=== PATIENT | male | born 1990 | race Caucasian/White ===

== ENCOUNTER 2022-03-12 07:49 | Inpatient (IN) | payer BC, OTHER ==
[~2022-03-12] VITALS: Ht 182.9 cm; Wt 77.0 kg
[2022-03-12] VITALS (8 sets, daily range): BP systolic 105–119; BP diastolic 60–76
[2022-03-12] MEDS ORDERED: SODIUM CHLORIDE 0.9% 1,000 ML IV ONE (08:45)
[2022-03-12 09:09] LABS: Basophils # (auto) 0 10 ^3/uL (0-0.2); Eosinophils # (auto) 0 10 ^3/uL (0-0.8); Eosinophils % (auto) 0.1 % (0.0-7.0); Nucleated Red Blood Cells % 0.3 %; White Blood Cell 13.2 10^3/uL (4.4-10.8)
[2022-03-12 09:11] LABS: Hematocrit 21.6 % (41.0-53.0); Lymphocytes # (auto) 1.3 10 ^3/uL (0.4-5.4); Lymphocytes % (auto) 10.2 % (10.0-50.0); Mean Corpuscular Hemoglobin 24.2 pg (28.0-32.0); Mean Corpuscular Hgb Conc. 30.7 g/dL (32.0-36.0); Mean Corpuscular Volume 78.9 fL (80.0-100.0); Monocytes # (auto) 0.4 10 ^3/uL (0-1.3); Monocytes % (auto) 3.1 % (0.0-12.0); Neutrophils # (auto) 11.5 10 ^3/uL (1.6-8.6); Neutrophils % (auto) 86.6 % (37.0-80.0); Red Blood Cells 2.74 10^6/uL (4.5-5.90)
[2022-03-12 09:14] LABS: Red Cell Distribution Width 20.4 % (11.8-14.3)
[2022-03-12 09:18] LABS: Albumin 1.1 g/dL (3.4-5.0); Calcium 7.3 mg/dL (8.5-10.1)
[2022-03-12 09:20] LABS: Hemoglobin 6.6 g/dL (13.5-17.5)
[2022-03-12 09:20] LABS: Bilirubin, Total 0.2 mg/dL (0.2-1.0); Potassium 2.4 mmol/L (3.5-5.1); Total Protein 4.9 g/dL (6.4-8.2)
[2022-03-12 09:29] LABS: BUN/Creatinine Ratio 21.3
[2022-03-12] MEDS ORDERED: POTASSIUM EFFERVESENT TAB 25 MEQ PO ONE (09:45)
[2022-03-12] MEDS ORDERED: cefTRIAXone 1GM/50ML D5W 50 ML IV ONE (10:00)
[2022-03-12] MEDS ORDERED: metroNIDAZOLE 500MG/100ML 100 ML IV ONE (10:00)
[2022-03-12 11:27] LABS: Lactic Acid w/Reflex 2.7 mmol/L (0.4-2.0)
[2022-03-12 11:48] LABS: Urine Bacteria NONE SEEN /hpf (None Seen); Urine Blood Negative /uL (Negative); Urine Mucus FEW (None Seen); Urine Specific Gravity 1.021 (1.001-1.035); Urine WBC 16 /hpf (0 - 3)
[2022-03-12] MEDS ORDERED: ACETAMINOPHEN 325 MG TAB PO ONE (12:30)
[2022-03-12] MEDS ORDERED: MAGNESIUM SULFATE 1GM/100ML 100 ML IV ONE (17:15)
[2022-03-12] MEDS ORDERED: PANTOPRAZOLE 40 MG/10 ML VIAL INJ IV ONE (17:15)
[2022-03-12] MEDS ORDERED: ONDANSETRON HCL 4 MG/2 ML VIAL IV PRN (17:15)
[2022-03-12] MEDS ORDERED: OCTREOTIDE ACETATE 100 MCG in SODIUM CHL 0.9% 50 ML IV ONE (17:15)
[2022-03-12] MEDS: MORPHINE SULFATE INJ 2 MG/ml SYRG IV PRN (18:24)
[2022-03-12] MEDS: SODIUM CHLORIDE 0.9% 1,000 ML IV SCH (18:33)
[2022-03-12] MEDS: OCTREOTIDE ACETATE 500 MCG in SODIUM CHL 0.9% 99 ML IV SCH (18:44)
[2022-03-12 19:11] LABS: Hemoglobin 8.5 g/dL (13.5-17.5)
[2022-03-12 19:12] LABS: Hematocrit 26.6 % (41.0-53.0)
[2022-03-12 19:35] LABS: BUN/Creatinine Ratio 32.5; Calcium 6.9 mg/dL (8.5-10.1)
[2022-03-12 19:44] LABS: Potassium 2.7 mmol/L (3.5-5.1)
[2022-03-12 19:54] LABS: Cholesterol < 50 mg/dL (< 200); HDL Cholesterol 25 mg/dL (40-59); LDL Cholesterol 15 mg/dL (< 100); Triglycerides 57 mg/dL (< 150)
[2022-03-12] MEDS ORDERED: BALS750C6 PO (21:27)
[2022-03-12] MEDS ORDERED: PRE1T PO (21:27)
[2022-03-12] MEDS: PANTOPRAZOLE 40 MG/10 ML VIAL INJ IV SCH (23:18)
[2022-03-12] MEDS: metroNIDAZOLE 500MG/100ML 100 ML IV SCH (23:19)
[2022-03-13] MEDS ORDERED: POTASSIUM CHL 20MEQ/100ML 100 ML IV ONE
[2022-03-13 01:45] LABS: Hemoglobin 9.5 g/dL (13.5-17.5)
[2022-03-13 01:49] LABS: Hematocrit 29.9 % (41.0-53.0)
[2022-03-13 02:02] LABS: BUN/Creatinine Ratio 26.5
[2022-03-13] MEDS: SODIUM CHLORIDE 0.9% 1,000 ML IV SCH ×4 (02:03→23:41)
[2022-03-13] MEDS ORDERED: POTASSIUM CHL 20MEQ/100ML 100 ML IV SCH (02:15)
[2022-03-13] MEDS: OCTREOTIDE ACETATE 500 MCG in SODIUM CHL 0.9% 99 ML IV SCH ×3 (03:15→23:40)
[2022-03-13 05:00] VITALS: BP 113/70
[2022-03-13] MEDS: metroNIDAZOLE 500MG/100ML 100 ML IV SCH ×3 (05:26→22:09)
[2022-03-13 05:42] LABS: Basophils # (auto) 0 10 ^3/uL (0-0.2); Basophils % (auto) 0.1 % (0.0-2.0); Eosinophils # (auto) 0 10 ^3/uL (0-0.8); Monocytes # (auto) 0.3 10 ^3/uL (0-1.3); Nucleated Red Blood Cells % 0.1 %
[2022-03-13 05:45] LABS: Hemoglobin 8.2 g/dL (13.5-17.5); Lymphocytes % (auto) 5.5 % (10.0-50.0); Mean Corpuscular Hemoglobin 25.4 pg (28.0-32.0); Mean Corpuscular Hgb Conc. 31.6 g/dL (32.0-36.0); Mean Corpuscular Volume 80.4 fL (80.0-100.0); Neutrophils # (auto) 15.9 10 ^3/uL (1.6-8.6); Neutrophils % (auto) 92.4 % (37.0-80.0); Red Blood Cells 3.23 10^6/uL (4.5-5.90); White Blood Cell 17.2 10^3/uL (4.4-10.8)
[2022-03-13 05:52] LABS: Red Cell Distribution Width 21.6 % (11.8-14.3)
[2022-03-13 05:53] LABS: BUN/Creatinine Ratio 25.5; Calcium 6.7 mg/dL (8.5-10.1)
[2022-03-13 05:56] LABS: Bilirubin, Total 0.4 mg/dL (0.2-1.0); Total Protein 4.1 g/dL (6.4-8.2)
[2022-03-13 05:59] LABS: Potassium 2.9 mmol/L (3.5-5.1)
[2022-03-13] MEDS: POTASSIUM CHL 20MEQ/100ML 100 ML IV SCH ×3 (07:02→11:45)
[2022-03-13 08:15] VITALS: BP 113/76
[2022-03-13 09:18] VITALS: BP 113/76
[2022-03-13] MEDS: cefTRIAXone 1GM/50ML D5W 50 ML IV SCH (09:37)
[2022-03-13] MEDS: PANTOPRAZOLE 40 MG/10 ML VIAL INJ IV SCH ×2 (09:57→22:09)
[2022-03-13] MEDS: methylPREDNISolone SOD SUCC 125 MG/2 ML VL IV SCH ×2 (11:46→22:12)
[2022-03-13 11:52] LABS: Hemoglobin 8.9 g/dL (13.5-17.5)
[2022-03-13 11:54] LABS: Hematocrit 28.6 % (41.0-53.0)
[2022-03-13 12:07] LABS: BUN/Creatinine Ratio 20.8; Potassium 3.3 mmol/L (3.5-5.1)
[2022-03-13 13:00] VITALS: BP 109/74
[2022-03-13 16:21] VITALS: BP 112/78
[2022-03-13] MEDS: VANCOMYCIN HCL 125MG/5ML ORAL SOL PO SCH ×2 (18:09→23:40)
[2022-03-13 22:00] VITALS: BP 115/76
[2022-03-13] MEDS: FLORASTOR (S. BOULARDII) 250 MG CAP PO SCH (22:12)
[2022-03-13] MEDS: MORPHINE SULFATE INJ 2 MG/ml SYRG IV PRN (22:13)
[2022-03-14 05:00] VITALS: BP 114/82
[2022-03-14 05:12] LABS: Basophils # (auto) 0 10 ^3/uL (0-0.2); Eosinophils # (auto) 0 10 ^3/uL (0-0.8); Hematocrit 27.6 % (41.0-53.0); Hemoglobin 8.5 g/dL (13.5-17.5); Lymphocytes # (auto) 0.9 10 ^3/uL (0.4-5.4); Monocytes # (auto) 0.2 10 ^3/uL (0-1.3); Monocytes % (auto) 1.3 % (0.0-12.0)
[2022-03-14 05:14] LABS: Basophils % (auto) 0.1 % (0.0-2.0); Lymphocytes % (auto) 6.5 % (10.0-50.0); Mean Corpuscular Hgb Conc. 30.7 g/dL (32.0-36.0); Mean Corpuscular Volume 81.4 fL (80.0-100.0); Neutrophils # (auto) 12.9 10 ^3/uL (1.6-8.6); Neutrophils % (auto) 92.1 % (37.0-80.0); Nucleated Red Blood Cells % 0.1 %; Red Blood Cells 3.39 10^6/uL (4.5-5.90)
[2022-03-14 05:17] LABS: Red Cell Distribution Width 21.2 % (11.8-14.3)
[2022-03-14 05:23] LABS: Calcium 7.1 mg/dL (8.5-10.1); Potassium 4.1 mmol/L (3.5-5.1)
[2022-03-14 05:29] LABS: BUN/Creatinine Ratio 19.6; Bilirubin, Total 0.4 mg/dL (0.2-1.0); Total Protein 4.2 g/dL (6.4-8.2)
[2022-03-14] MEDS: methylPREDNISolone SOD SUCC 125 MG/2 ML VL IV SCH ×3 (06:11→21:33)
[2022-03-14] MEDS: metroNIDAZOLE 500MG/100ML 100 ML IV SCH ×3 (06:11→21:33)
[2022-03-14] MEDS: VANCOMYCIN HCL 125MG/5ML ORAL SOL PO SCH ×4 (06:12→23:43)
[2022-03-14 08:15] VITALS: BP 111/80
[2022-03-14] MEDS: MORPHINE SULFATE INJ 2 MG/ml SYRG IV PRN ×2 (08:52→18:05)
[2022-03-14 09:06] VITALS: BP 111/80
[2022-03-14] MEDS: FLORASTOR (S. BOULARDII) 250 MG CAP PO SCH ×2 (09:27→21:34)
[2022-03-14] MEDS: cefTRIAXone 1GM/50ML D5W 50 ML IV SCH (09:27)
[2022-03-14] MEDS: PANTOPRAZOLE 40 MG/10 ML VIAL INJ IV SCH ×2 (09:27→21:33)
[2022-03-14 09:34] LABS: Magnesium 1.9 mg/dL (1.6-2.6); Phosphorus 4.1 mg/dL (2.5-4.90)
[2022-03-14] MEDS: OCTREOTIDE ACETATE 500 MCG in SODIUM CHL 0.9% 99 ML IV SCH ×2 (10:21→19:30)
[2022-03-14] MEDS: POTASSIUM CHLORIDE 20 MEQ in D5W 5% 1,000 ML IV SCH ×3 (10:21→23:59)
[2022-03-14 16:46] VITALS: BP 117/69
[2022-03-14] MEDS ORDERED: TPN PER PHARMACY 0 ML IV SCH (17:15)
[2022-03-14] MEDS: AMINO ACID INFUSION IN D10W 1,000 ML IV NR (19:30)
[2022-03-14 21:42] VITALS: BP 112/79
[2022-03-14] MEDS: ACCU-CHEK COMFORT CURVE STRIP VI SCH (23:53)
[2022-03-14] MEDS: InsuLIN REG 1unit/0.01ml Soln (100units/ml) SC SCH (23:58)
[2022-03-15] MEDS ORDERED: DEXTROSE (50%) 50ML SYRG IV SCH
[2022-03-15] MEDS: MORPHINE SULFATE INJ 2 MG/ml SYRG IV PRN ×2 (04:16→13:15)
[2022-03-15 04:38] VITALS: BP 121/85
[2022-03-15 05:16] LABS: Basophils # (auto) 0 10 ^3/uL (0-0.2); Eosinophils # (auto) 0 10 ^3/uL (0-0.8); Lymphocytes # (auto) 0.5 10 ^3/uL (0.4-5.4); Mean Corpuscular Volume 80.3 fL (80.0-100.0); Monocytes # (auto) 0.3 10 ^3/uL (0-1.3)
[2022-03-15 05:20] LABS: Basophils % (auto) 0.2 % (0.0-2.0); Hematocrit 26.7 % (41.0-53.0); Hemoglobin 8.4 g/dL (13.5-17.5); Mean Corpuscular Hemoglobin 25.1 pg (28.0-32.0); Mean Corpuscular Hgb Conc. 31.3 g/dL (32.0-36.0); Neutrophils # (auto) 12.1 10 ^3/uL (1.6-8.6); Neutrophils % (auto) 93.8 % (37.0-80.0); Nucleated Red Blood Cells % 0.1 %; Red Blood Cells 3.33 10^6/uL (4.5-5.90); White Blood Cell 12.9 10^3/uL (4.4-10.8)
[2022-03-15 05:27] LABS: Red Cell Distribution Width 21.6 % (11.8-14.3)
[2022-03-15] MEDS: methylPREDNISolone SOD SUCC 125 MG/2 ML VL IV SCH ×3 (05:34→21:54)
[2022-03-15] MEDS: metroNIDAZOLE 500MG/100ML 100 ML IV SCH ×3 (05:34→21:53)
[2022-03-15] MEDS: OCTREOTIDE ACETATE 500 MCG in SODIUM CHL 0.9% 99 ML IV SCH ×2 (05:35→15:19)
[2022-03-15] MEDS: VANCOMYCIN HCL 125MG/5ML ORAL SOL PO SCH ×4 (05:35→23:41)
[2022-03-15] MEDS: ACCU-CHEK COMFORT CURVE STRIP VI SCH ×4 (05:36→23:41)
[2022-03-15 05:37] LABS: Albumin 1.1 g/dL (3.4-5.0); BUN/Creatinine Ratio 15.6; Calcium 7.3 mg/dL (8.5-10.1); Potassium 3.9 mmol/L (3.5-5.1)
[2022-03-15] MEDS: InsuLIN REG 1unit/0.01ml Soln (100units/ml) SC SCH ×4 (05:38→23:45)
[2022-03-15 05:40] LABS: Bilirubin, Total 0.2 mg/dL (0.2-1.0); Total Protein 4.4 g/dL (6.4-8.2)
[2022-03-15 09:00] VITALS: BP 112/74
[2022-03-15] MEDS: PANTOPRAZOLE 40 MG/10 ML VIAL INJ IV SCH ×2 (09:22→21:54)
[2022-03-15] MEDS: cefTRIAXone 1GM/50ML D5W 50 ML IV SCH (09:22)
[2022-03-15] MEDS: FLORASTOR (S. BOULARDII) 250 MG CAP PO SCH ×2 (09:23→21:54)
[2022-03-15 09:41] LABS: INR 1.27 (0.9-1.15); Partial Thromboplastin Time 30.2 sec (24.6-33.4)
[2022-03-15] MEDS: POTASSIUM CHLORIDE 20 MEQ in D5W 5% 1,000 ML IV SCH (11:59)
[2022-03-15 13:00] VITALS: BP 109/76
[2022-03-15] MEDS ORDERED: LIDOCAINE 1% (LOCAL ANESTH.) PF 5ml SDV ID ONE (14:45)
[2022-03-15] MEDS ORDERED: AMINO ACID INFUSION IN D10W 1,000 ML IV NR ×2 (16:00→21:00)
[2022-03-15 16:53] VITALS: BP 116/78
[2022-03-15] MEDS ORDERED: SODIUM PHOSPHATES 20 MEQ in SODIUM CHL 0.9% 100 ML IV ONE (17:00)
[2022-03-15] MEDS: SOD CHL 0.9%/ KCL 20MEQ 1,000 ML IV SCH (17:23)
[2022-03-15] MEDS: AMINO ACID INFUSION IN D10W 1,000 ML IV NR (19:49)
[2022-03-15 22:00] VITALS: BP 105/75
[2022-03-15] MEDS: SODIUM CHLOR 0.9% PF (SALINE LOCK) 10ML VIAL/SYR IV SCH (22:04)
[2022-03-16] MEDS: OCTREOTIDE ACETATE 500 MCG in SODIUM CHL 0.9% 99 ML IV SCH ×3 (00:26→22:52)
[2022-03-16] MEDS: SOD CHL 0.9%/ KCL 20MEQ 1,000 ML IV SCH ×4 (01:25→22:27)
[2022-03-16] MEDS: MORPHINE SULFATE INJ 2 MG/ml SYRG IV PRN ×2 (03:36→13:42)
[2022-03-16 05:00] VITALS: BP 105/70
[2022-03-16 05:14] LABS: Basophils # (auto) 0 10 ^3/uL (0-0.2); Eosinophils # (auto) 0 10 ^3/uL (0-0.8); Monocytes # (auto) 0.2 10 ^3/uL (0-1.3); Neutrophils # (auto) 11.3 10 ^3/uL (1.6-8.6)
[2022-03-16 05:15] LABS: Basophils % (auto) 0.2 % (0.0-2.0); Hematocrit 25.1 % (41.0-53.0); Lymphocytes # (auto) 0.5 10 ^3/uL (0.4-5.4); Lymphocytes % (auto) 4.1 % (10.0-50.0); Mean Corpuscular Volume 81.1 fL (80.0-100.0); Monocytes % (auto) 1.8 % (0.0-12.0); Neutrophils % (auto) 93.9 % (37.0-80.0); Red Blood Cells 3.09 10^6/uL (4.5-5.90)
[2022-03-16 05:17] LABS: Potassium 4.3 mmol/L (3.5-5.1)
[2022-03-16 05:20] LABS: Red Cell Distribution Width 21.7 % (11.8-14.3)
[2022-03-16 05:30] LABS: Albumin 1.1 g/dL (3.4-5.0); Bilirubin, Total 0.2 mg/dL (0.2-1.0); Calcium 7.1 mg/dL (8.5-10.1); Magnesium 1.9 mg/dL (1.6-2.6); Phosphorus 2.7 mg/dL (2.5-4.90); Total Protein 3.9 g/dL (6.4-8.2)
[2022-03-16] MEDS: VANCOMYCIN HCL 125MG/5ML ORAL SOL PO SCH ×3 (05:37→17:49)
[2022-03-16] MEDS: methylPREDNISolone SOD SUCC 125 MG/2 ML VL IV SCH ×2 (05:37→13:41)
[2022-03-16] MEDS: ACCU-CHEK COMFORT CURVE STRIP VI SCH ×3 (05:41→17:49)
[2022-03-16] MEDS: InsuLIN REG 1unit/0.01ml Soln (100units/ml) SC SCH ×3 (05:43→18:38)
[2022-03-16] MEDS: metroNIDAZOLE 500MG/100ML 100 ML IV SCH ×3 (05:47→22:29)
[2022-03-16 08:00] VITALS: BP 99/66
[2022-03-16] MEDS: SODIUM CHLOR 0.9% PF (SALINE LOCK) 10ML VIAL/SYR IV SCH ×2 (09:03→22:55)
[2022-03-16] MEDS: FLORASTOR (S. BOULARDII) 250 MG CAP PO SCH ×2 (09:03→22:27)
[2022-03-16] MEDS: PANTOPRAZOLE 40 MG/10 ML VIAL INJ IV SCH ×2 (09:03→22:29)
[2022-03-16] MEDS: cefTRIAXone 1GM/50ML D5W 50 ML IV SCH (09:03)
[2022-03-16] MEDS: MESALAMINE 400mg Delayed Release Cap PO SCH ×3 (13:41→22:28)
[2022-03-16 16:52] VITALS: BP 110/77
[2022-03-16] MEDS ORDERED: TPN PER PHARMACY IV NR ×9 (20:00)
[2022-03-16 22:00] VITALS: BP_SYST 106; BP_SYST 123; BP_DIAS 77; BP_DIAS 80
[2022-03-17] MEDS: VANCOMYCIN HCL 125MG/5ML ORAL SOL PO SCH ×4 (00:13→17:49)
[2022-03-17] MEDS: InsuLIN REG 1unit/0.01ml Soln (100units/ml) SC SCH ×4 (00:14→17:50)
[2022-03-17] MEDS: ACCU-CHEK COMFORT CURVE STRIP VI SCH ×4 (00:14→17:33)
[2022-03-17 05:00] VITALS: BP 126/88
[2022-03-17] MEDS: metroNIDAZOLE 500MG/100ML 100 ML IV SCH ×3 (05:30→21:36)
[2022-03-17] MEDS: MESALAMINE 400mg Delayed Release Cap PO SCH ×3 (05:30→21:37)
[2022-03-17] MEDS: MORPHINE SULFATE INJ 2 MG/ml SYRG IV PRN ×2 (05:47→14:49)
[2022-03-17 08:08] LABS: Anion Gap 6 (5-15); Blood Urea Nitrogen 4 mg/dL (7-18); Carbon Dioxide 29 mmol/L (21-32); Chloride 102 mmol/L (98-107); Glucose 152 mg/dL (74-106); Potassium 3.4 mmol/L (3.5-5.1); Sodium 137 mmol/L (136-145)
[2022-03-17 08:09] LABS: Alanine Aminotransferase 11 U/L (16-61); Alkaline Phosphatase 68 U/L (45-117); Aspartate Aminotransferase 8 U/L (15-37); Bilirubin, Total 0.1 mg/dL (0.2-1.0); Calcium 6.9 mg/dL (8.5-10.1); GFR African American 251 mL/min; GFR Non-African American 208 mL/min; Phosphorus 1.8 mg/dL (2.5-4.90); Total Protein 4.3 g/dL (6.4-8.2)
[2022-03-17 08:10] LABS: Albumin 1.2 g/dL (3.4-5.0); Magnesium 1.7 mg/dL (1.6-2.6)
[2022-03-17 09:00] VITALS: BP 119/86
[2022-03-17] MEDS: SODIUM CHLOR 0.9% PF (SALINE LOCK) 10ML VIAL/SYR IV SCH ×3 (09:27→22:00)
[2022-03-17] MEDS: cefTRIAXone 1GM/50ML D5W 50 ML IV SCH (09:28)
[2022-03-17] MEDS: OCTREOTIDE ACETATE 500 MCG in SODIUM CHL 0.9% 99 ML IV SCH ×2 (09:29→18:29)
[2022-03-17] MEDS: FLORASTOR (S. BOULARDII) 250 MG CAP PO SCH ×2 (09:29→21:37)
[2022-03-17] MEDS: PANTOPRAZOLE 40 MG/10 ML VIAL INJ IV SCH ×2 (09:30→21:37)
[2022-03-17] MEDS: SOD CHL 0.9%/ KCL 20MEQ 1,000 ML IV SCH ×2 (09:31→21:23)
[2022-03-17] MEDS ORDERED: SODIUM PHOSP 40 MEQ in D5W 5% 250 ML IV ONE (09:45)
[2022-03-17] MEDS: methylPREDNISolone SOD SUCC 40 MG/ML VL IV SCH ×2 (11:32→21:37)
[2022-03-17 12:30] VITALS: BP 120/82
[2022-03-17 16:35] VITALS: BP 113/79
[2022-03-17] MEDS ORDERED: LIDOCAINE 1% (LOCAL ANESTH.) PF 5ml SDV ID ONE (16:45)
[2022-03-17] MEDS ORDERED: InsuLIN REG 1unit/0.01ml Soln (100units/ml) ONE (17:35)
[2022-03-17] MEDS ORDERED: TPN PER PHARMACY IV NR ×10 (20:00)
[2022-03-17 22:00] VITALS: BP 140/94
[2022-03-18] MEDS: OCTREOTIDE ACETATE 500 MCG in SODIUM CHL 0.9% 99 ML IV SCH ×3 (03:46→23:45)
[2022-03-18 05:15] VITALS: BP 121/79
[2022-03-18] MEDS: metroNIDAZOLE 500MG/100ML 100 ML IV SCH ×3 (05:55→22:13)
[2022-03-18] MEDS: VANCOMYCIN HCL 125MG/5ML ORAL SOL PO SCH ×5 (05:55→23:51)
[2022-03-18] MEDS: ACCU-CHEK COMFORT CURVE STRIP VI SCH ×5 (05:56→23:51)
[2022-03-18] MEDS: InsuLIN REG 1unit/0.01ml Soln (100units/ml) SC SCH ×5 (05:56→23:54)
[2022-03-18] MEDS: MESALAMINE 400mg Delayed Release Cap PO SCH ×3 (05:57→22:15)
[2022-03-18] MEDS: MORPHINE SULFATE INJ 2 MG/ml SYRG IV PRN ×2 (08:42→14:17)
[2022-03-18 09:00] VITALS: BP 127/90
[2022-03-18] MEDS: SODIUM CHLOR 0.9% PF (SALINE LOCK) 10ML VIAL/SYR IV SCH ×4 (10:00→22:14)
[2022-03-18 10:29] LABS: Albumin 1.2 g/dL (3.4-5.0); Bilirubin, Total 0.1 mg/dL (0.2-1.0); Calcium 6.7 mg/dL (8.5-10.1); Magnesium 2.2 mg/dL (1.6-2.6); Phosphorus 3.1 mg/dL (2.5-4.90); Total Protein 4.1 g/dL (6.4-8.2)
[2022-03-18] MEDS: PANTOPRAZOLE 40 MG/10 ML VIAL INJ IV SCH ×2 (10:43→22:13)
[2022-03-18] MEDS: FLORASTOR (S. BOULARDII) 250 MG CAP PO SCH ×2 (10:44→22:15)
[2022-03-18] MEDS: SOD CHL 0.9%/ KCL 20MEQ 1,000 ML IV SCH ×2 (10:45→22:12)
[2022-03-18] MEDS: cefTRIAXone 1GM/50ML D5W 50 ML IV SCH (10:45)
[2022-03-18 11:04] LABS: Potassium 3.4 mmol/L (3.5-5.1)
[2022-03-18 13:00] VITALS: BP 147/84
[2022-03-18 17:05] VITALS: BP 113/70
[2022-03-18 20:00] VITALS: BP 122/77
[2022-03-18] MEDS ORDERED: TPN PER PHARMACY IV NR ×8 (20:00)
[2022-03-18 21:44] VITALS: BP 122/77
[2022-03-18] MEDS: methylPREDNISolone SOD SUCC 40 MG/ML VL IV SCH (22:27)
[2022-03-19 04:45] VITALS: BP 114/76
[2022-03-19] MEDS: metroNIDAZOLE 500MG/100ML 100 ML IV SCH (05:59)
[2022-03-19] MEDS: VANCOMYCIN HCL 125MG/5ML ORAL SOL PO SCH (05:59)
[2022-03-19] MEDS: MESALAMINE 400mg Delayed Release Cap PO SCH (05:59)
[2022-03-19] MEDS: ACCU-CHEK COMFORT CURVE STRIP VI SCH (06:00)
[2022-03-19] MEDS: InsuLIN REG 1unit/0.01ml Soln (100units/ml) SC SCH (06:03)
[2022-03-19] MEDS: SOD CHL 0.9%/ KCL 20MEQ 1,000 ML IV SCH (08:46)
[2022-03-19] MEDS: cefTRIAXone 1GM/50ML D5W 50 ML IV SCH (08:46)
[2022-03-19 09:00] VITALS: BP 123/75
[2022-03-19] MEDS ORDERED: PANT40T PO (09:07)
[2022-03-19] MEDS ORDERED: METR500T PO (09:07)
[2022-03-19] MEDS ORDERED: PRED20TA2 PO (09:07)
[2022-03-19] MEDS ORDERED: VANC250PO PO (09:07)
[2022-03-19] MEDS ORDERED: MESA1.2T PO (09:07)
[2022-03-19] MEDS: OCTREOTIDE ACETATE 500 MCG in SODIUM CHL 0.9% 99 ML IV SCH (09:15)
[2022-03-19] MEDS: PANTOPRAZOLE 40 MG/10 ML VIAL INJ IV SCH (09:19)
[2022-03-19] MEDS: SODIUM CHLOR 0.9% PF (SALINE LOCK) 10ML VIAL/SYR IV SCH ×2 (09:19→09:20)
[2022-03-19] MEDS: methylPREDNISolone SOD SUCC 40 MG/ML VL IV SCH (09:20)
[2022-03-19] MEDS: FLORASTOR (S. BOULARDII) 250 MG CAP PO SCH (09:21)
[2022-03-19 10:22] LABS: Albumin 1.3 g/dL (3.4-5.0); Calcium 7.1 mg/dL (8.5-10.1); Magnesium 2.2 mg/dL (1.6-2.6); Potassium 4.2 mmol/L (3.5-5.1)
[2022-03-19 10:24] LABS: BUN/Creatinine Ratio 13.6; Bilirubin, Total 0.1 mg/dL (0.2-1.0); Phosphorus 1.6 mg/dL (2.5-4.90); Total Protein 4.5 g/dL (6.4-8.2)
[2022-03-19 12:32] LABS: Eosinophils # (auto) 0 10 ^3/uL (0-0.8); Eosinophils % (auto) 0.2 % (0.0-7.0); Hemoglobin 8.4 g/dL (13.5-17.5); Monocytes # (auto) 0.2 10 ^3/uL (0-1.3); Nucleated Red Blood Cells % 0.1 %
[2022-03-19 12:33] LABS: Basophils # (auto) 0.1 10 ^3/uL (0-0.2); Basophils % (auto) 0.5 % (0.0-2.0); Hematocrit 26.9 % (41.0-53.0); Lymphocytes % (auto) 10.2 % (10.0-50.0); Mean Corpuscular Hemoglobin 25.7 pg (28.0-32.0); Mean Corpuscular Hgb Conc. 31.2 g/dL (32.0-36.0); Mean Corpuscular Volume 82.3 fL (80.0-100.0); Monocytes % (auto) 1.6 % (0.0-12.0); Neutrophils # (auto) 8.9 10 ^3/uL (1.6-8.6); Neutrophils % (auto) 87.5 % (37.0-80.0); Red Blood Cells 3.27 10^6/uL (4.5-5.90); Red Cell Distribution Width 23.2 % (11.8-14.3); White Blood Cell 10.2 10^3/uL (4.4-10.8)
== END 2022-03-19 11:30 | disposition home or self-care (01) | DRG 871 ==
LOC: ER 07:49 → TELE 17:10 → TELE-CENTR 22:32
PROVIDERS: ADMIT Registered Nurse; ATTEND Family Medicine
PROC: 30233N1 Transfusion of Nonautologous Red Blood Cells into Peripheral Vein, Percutaneous Approach (ICD-10-PCS; principal; 2022-03-12)
PROC: 02HV33Z Insertion of Infusion Device into Superior Vena Cava, Percutaneous Approach (ICD-10-PCS; 2022-03-15)
PROC: 02PYX3Z Removal of Infusion Device from Great Vessel, External Approach (ICD-10-PCS; 2022-03-17)
PROC: 02HV33Z Insertion of Infusion Device into Superior Vena Cava, Percutaneous Approach (ICD-10-PCS; 2022-03-17)
DX: A41.9 Sepsis, unspecified organism (principal); E43 Unspecified severe protein-calorie malnutrition; A04.72 Enterocolitis due to Clostridium difficile, not specified as recurrent; K51.90 Ulcerative colitis, unspecified, without complications; N39.0 Urinary tract infection, site not specified; I82.612 Acute embolism and thrombosis of superficial veins of left upper extremity; E78.5 Hyperlipidemia, unspecified; R73.9 Hyperglycemia, unspecified; Z20.822 Contact with and (suspected) exposure to COVID-19; D64.9 Anemia, unspecified; E87.6 Hypokalemia; E86.0 Dehydration; K76.0 Fatty (change of) liver, not elsewhere classified; Z87.442 Personal history of urinary calculi; Z79.899 Other long term (current) drug therapy; Z68.23 Body mass index [BMI] 23.0-23.9, adult; Z79.01 Long term (current) use of anticoagulants
CPT/HCPCS: 36415; 36569; 74176; 80048; 80053; 80061; 81001; 82270; 82962; 83036; 83605; 83735; 84100; 84478; 85014; 85018; 85025; 85610; 85730; 86850; 86900; 86901; 86920; 87040; 87493; 93971; 96361; 96365; 96367; 97110; 97116; 97163; 97530; C9113; G0378; J0696; J1815; J2405; J3480; J3490; J7060